=== PATIENT | male | born 1970 | race Hispanic/Latino ===

== ENCOUNTER 2023-05-29 05:43 | Day surgery (SDC) | payer MEDICAID ==
[2023-05-28 10:02] VITALS: BP 137/85; PULSE 70; RESP 18
[2023-05-28 10:17] LABS: BASOPHILS # (AUTO) 0.02 K/uL (0.00-0.20); BASOPHILS % (AUTO) 0.2 % (0.0-5.0); HEMATOCRIT 44.7 % (42-54); IMMATURE GRANULOCYTE ABSOLUTE 0.08 K/uL (0-1); LYMPHOCYTES % (AUTO) 8.5 % (21.0-51.0); MEAN CORPUSCULAR HEMOGLOBIN 28.9 pg (27.0-33.0); MEAN CORPUSCULAR HGB CONC 32.7 g/dL (32.0-36.0); MEAN CORPUSCULAR VOLUME 88.5 fL (79-99); MONOCYTES # (AUTO) 0.2 K/uL (0.1-1.0); NEUTROPHILS # (AUTO) 10.6 K/uL (1.8-7.7); NEUTROPHILS % (AUTO) 88.6 % (40.0-77.0); PLATELET COUNT (AUTO) 266 K/uL (130-400); RED BLOOD CELL COUNT(AUTO) 5.05 MIL/uL (4.50-6.20); RED CELL DISTRIBUTION WIDTH 13.9 % (11.0-15.5); WHITE BLOOD COUNT (AUTO) 11.9 K/uL (4.8-10.8)
[2023-05-28 10:25] LABS: POTASSIUM 4.6 mmol/L (3.5-5.1)
[2023-05-28 10:26] LABS: INR <= 0.93 (0.85-1.15); PROTHROMBIN TIME 10.9 SEC (9.6-11.6)
[2023-05-28 10:28] LABS: PARTIAL THROMBOPLASTIN TIME 25.9 SEC (26.3-35.5)
[2023-05-29] VITALS (10 sets, daily range): BP systolic 104–141; BP diastolic 58–90; PULSE 70–76; RESP 12–20
[~2023-05-29] VITALS: Ht 157.5 cm; Wt 77.7 kg
[~2023-05-29 05:43] MED LIST: ACYC400T20 PO; AEC81 PO; DIAZ10TA4 PO; ENAL-87 PO; EPIN0.3P19 IJ; FLUO40CA49 PO; FLUT16H NASAL; LEVO75CA5 PO; LORA10TA7 PO; METF-446 PO; METO50TA18 PO; PANT40TA54 PO; PRAV20TA4 PO
[2023-05-29] MEDS: 0.9%NACL 1000ML 1,000 ML IV ONE (06:36)
[2023-05-29] MEDS ORDERED: VANCOMYCIN 1G/250ML KIT 500 ML IV ONE (07:24)
[2023-05-29] MEDS ORDERED: LIDOCAINE HCL 1% MDV 50ML VIAL ONE (07:26)
[2023-05-29] MEDS ORDERED: BUPIVACAINE/PF 0.25% 30ML VIAL IJ ONE (07:26)
[2023-05-29] MEDS ORDERED: MEPERIDINE-PF 25 MG/ML SYG ONE ×3 (07:26→07:42)
[2023-05-29] MEDS ORDERED: MIDAZOLAM HCL 1 MG/ML 2ML VIAL ONE ×3 (07:26→07:42)
[2023-05-29] MEDS ORDERED: ONDANSETRON 4MG INJ IV PRN (08:30)
[2023-05-29] MEDS ORDERED: ACETAMINOPHEN WITH CODEINE 1 TAB TAB PO PRN ×2 (08:30)
== END 2023-05-29 12:15 | disposition home or self-care (01) ==
LOC: DAH 05:43
PROVIDERS: ATTEND Internal Medicine Cardiovascular Disease
DX: Z45.010 Encounter for checking and testing of cardiac pacemaker pulse generator [battery] (principal); I49.5 Sick sinus syndrome; F41.9 Anxiety disorder, unspecified; F32.A Depression, unspecified; E11.9 Type 2 diabetes mellitus without complications; Z79.82 Long term (current) use of aspirin; Z79.890 Hormone replacement therapy; Z79.899 Other long term (current) drug therapy; Z98.890 Other specified postprocedural states; Z88.3 Allergy status to other anti-infective agents; Z87.19 Personal history of other diseases of the digestive system; Z82.49 Family history of ischemic heart disease and other diseases of the circulatory system; Z88.0 Allergy status to penicillin; Z91.041 Radiographic dye allergy status; Z79.01 Long term (current) use of anticoagulants
CPT/HCPCS: 80048; 85025; 85610; 85730; 36415; 93005; 33228; 82948; C1785; J7030; J0665; J2250 ×3; J3370; J2175 ×3; J3490; A4215; A4222; A4221; A4663; A4216; A4606; A4223 ×3; 99156; 99157